=== PATIENT | female | born 1945 | race Hispanic/Latino ===

== ENCOUNTER 2018-06-03 07:18 | Day surgery (SDC) | payer MEDICARE ==
[2018-05-27 10:25] VITALS: BMI 25.4
--- NOTE | 2018-06-03 01:02 | HP ---
HISTORY OF PRESENT ILLNESS: Ms. Browne is referred to us by Dr. Curtis's office for evaluation of emerita th neck and low back complaints. Additionally, the patient brings up mild head and neck tremor that developed about a year and a half ago. She does have positive family history with both mom and broth er having Parkinson's disease. She also has concerns about this. Additionally, she reports numbness over her face, which I do not believe has any relation to her . Her low back complaint is that of axial low back pain that radiates in a searing L3 fashion to the right lower extremity. She mis es any left lower extremity pain. She does have bilateral lower extremity tingling for too barrington g. All this relates to an MRI scan on disk of her lumbars, which reveals scattered degenerative dise ase including severe L3-L4 stenosis with a borderline grade 1 to grade 2 spondylolisthesis, which is very likely the source of her back and leg symptoms. She has treated this conservatively for some ti me now and hopes to move forward with surgery if possible. PAST MEDICAL HISTORY: Positive for hyperlipidemia and hypothyroidism. PAST SURGICAL HISTORY: Herniorrhaphy. CURRENT MEDICATIONS: Levothyroxine, zolpidem, simvastatin. ALLERGIES: No known drug allergies. PHYSICAL EXAMINATION: NEUROLOGIC: The patient is alert and oriented x3. Gait is antalgic. Lower e xtremity motor exam is normal. ASSESSMENT: Dr. Shannon met with the patient, reviewed imaging, and ultimately advocated for lumbar de compression and fusion at L3-L4. He explained to the patient the risks, benefits, and alternatives t o the procedure. The patient expressed understanding and would like to move forward with surgery as discussed. I do believe the patient is mentally competent and capable of making medical decisions fo r herself and we will move forward with surgery as planned. Ankit Armstrong PA-C dictating for Dr. Shannon.
[2018-06-03] MEDS ORDERED: Bupivacaine HCl 0.5%/Epinephrine 1:200,000/PF 30 ml Vial ONE ×2 (07:53)
[2018-06-03] MEDS ORDERED: Thrombin 5000 UNITS/5 ML VIAL ONE (07:53)
[2018-06-03] MEDS ORDERED: CEFAZOLIN/Water 2 GM/20 ML SYRINGE ONE ×2 (08:01→15:24)
[2018-06-03] MEDS ORDERED: Fentanyl 100 MCG/2 ML VIAL ONE ×5 (08:24→14:06)
[2018-06-03] MEDS ORDERED: PROVENTIL INHALER 6.7 G (200 INHALATIONS) ONE (09:48)
[2018-06-03] MEDS ORDERED: PHENYLEPHRINE-NS 100 MCG/ML 10 ML SYRINGE ONE (09:48)
[2018-06-03] MEDS ORDERED: Dexamethasone 20 MG/5 ML VIAL ONE (09:48)
[2018-06-03] MEDS ORDERED: Lidocaine 1% PF 5 ML VIAL ONE (09:48)
[2018-06-03] MEDS ORDERED: PROPOFOL 200 MG/20 ML VIAL ONE (09:48)
[2018-06-03] MEDS ORDERED: Ondansetron HCl/PF 4 MG/2 ML Vial ONE ×2 (09:48→17:50)
[2018-06-03] MEDS ORDERED: Glycopyrrolate 0.2 MG/ML 5 ML SYRINGE ONE (09:48)
[2018-06-03] MEDS ORDERED: Midazolam HCl 2 mg/2 ml Vial ONE (12:44)
[2018-06-03] MEDS ORDERED: HYDROmorphone 2 MG/ML VIAL ONE (13:09)
[2018-06-03] MEDS ORDERED: Promethazine HCl 25 MG/ML VIAL ONE (15:45)
--- NOTE | 2018-06-06 12:37 | OP ---
DATE OF SURGERY: 06/03/2018 SURGEON: Paul Shannon MD SETUP TECHNICIAN: Ankit Armstrong PA-C INDICATION: Pain. DIAGNOSES: Back pain, lumbar radiculopathy, degenerative disk disease. PROCEDURES: L3-L4 decompression and fusion. ANESTHESIA: General. TECHNIQUE: The patient was brought into the operating room and placed under general anesthesia. She was flipped from a supine to a prone position on the operating room table. A linear incision was pl anned over the L3-L4 segment. After prepping and draping and after an appropriate operative pause, t he incision was created. The soft tissues were swept away from midline. Self-retaining retractors w ere placed in the wound for optimal exposure. After confirming the appropriate level with C-arm fluo roscopy, Adson rongeurs as well as a high-speed cutting drill bit, and 2, 3 and 4-mm Kerrisons were u sed to perform the decompression and facetectomies at L3-L4. Pedicle screws were then placed within the pedicles at L3-L4 with the aid of C-arm fluoroscopy. An intraoperative 3D CT scan was then perfo rmed to confirm appropriate placement of hardware. The wound was irrigated. Hemostasis was maintain ed throughout. The wound was then closed in anatomic layers and a pressure dressing was applied. Th ere were no known procedural complications.
== END 2018-06-03 18:40 | disposition home or self-care (01) ==
LOC: SDC 07:18
PROVIDERS: ATTEND Neurological Surgery
PROC: 0SG00AJ Fusion of Lumbar Vertebral Joint with Interbody Fusion Device, Posterior Approach, Anterior Column, Open Approach (ICD-10-PCS; principal; 2018-06-03)
DX: M51.16 Intervertebral disc disorders with radiculopathy, lumbar region (principal); M43.16 Spondylolisthesis, lumbar region; M48.061 Spinal stenosis, lumbar region without neurogenic claudication; E78.5 Hyperlipidemia, unspecified; E03.9 Hypothyroidism, unspecified; Z79.899 Other long term (current) drug therapy; Z88.5 Allergy status to narcotic agent
CPT/HCPCS: 22612; 22840; 76001; 96374 ×2; C1713 ×2; J0131; J0670; J1100; J1170; J2001; J2250; J2405; J2550; J2704; J3010

== ENCOUNTER 2018-07-19 09:53 | Outpatient (CLI) | payer MEDICARE ==
--- NOTE | 2018-07-19 11:26 | RAD ---
LUMBAR SPINE 2 VIEWS: HISTORY: A 73-year-old female with a history of M48.061, followup surgery at L3-L4. COMPARISON: MRI lumbar spine 03/18/1028. FINDINGS: Laminectomy and pedicle screw placement changes noted at L3-L4 with some anterior listhesis of L3 on L4. Marked narrowing at L4-L5 and L5-S1 and L2-L3 and L1-L2. Dextroscoliosis of the lumbar vertebra l column. Heterogeneous bony demineralization. IMPRESSION: Dextroscoliosis with postoperative changes at L3 on L4 with stable anterolisthesis. Multilevel disk- osteophytosis and facet arthrosis. POS: MICHELLE
== END 2018-07-19 09:54 | disposition home or self-care (01) ==
LOC: TBSIIMAG 09:53
PROVIDERS: ATTEND Neurological Surgery
DX: M48.061 Spinal stenosis, lumbar region without neurogenic claudication (principal); M41.9 Scoliosis, unspecified; M43.16 Spondylolisthesis, lumbar region; M25.78 Osteophyte, vertebrae; M47.896 Other spondylosis, lumbar region
CPT/HCPCS: 72100

== ENCOUNTER 2019-02-28 09:28 | Emergency (ER) | payer MEDICARE | END 2019-02-28 12:37 | disposition home or self-care (01) | LOC: ERS 09:28 | DX: L25.9 Unspecified contact dermatitis, unspecified cause (principal); F17.210 Nicotine dependence, cigarettes, uncomplicated; E78.5 Hyperlipidemia, unspecified; E03.9 Hypothyroidism, unspecified | CPT/HCPCS: 99282 ==

== ENCOUNTER 2022-04-09 08:11 | Outpatient (CLI) | payer MEDICARE ==
[~2022-04-09 08:11] MED LIST: Iopamidol 370 76% 100 ML VIAL ONE
== END 2022-04-09 08:12 | disposition home or self-care (01) ==
LOC: CT 08:11
PROVIDERS: ATTEND Thoracic Surgery (Cardiothoracic Vascular Surgery)
DX: I70.213 Atherosclerosis of native arteries of extremities with intermittent claudication, bilateral legs (principal); I70.0 Atherosclerosis of aorta; I70.8 Atherosclerosis of other arteries; I77.1 Stricture of artery; R91.1 Solitary pulmonary nodule; K44.9 Diaphragmatic hernia without obstruction or gangrene; K57.30 Diverticulosis of large intestine without perforation or abscess without bleeding; M47.816 Spondylosis without myelopathy or radiculopathy, lumbar region; M41.9 Scoliosis, unspecified; Z98.890 Other specified postprocedural states
CPT/HCPCS: 75635; 82565; Q9967

== ENCOUNTER 2022-04-24 09:15 | Inpatient (IN) | payer MEDICARE ==
[2022-04-24 11:28] LABS: Hemoglobin 13.6 g/dL (12.0-15.5); Mean Corpuscular HGB CONC 33.6 g/dL (32.0-36.0); Mean Corpuscular Hemoglobin 31.7 pg (27.0-33.0); Mean Corpuscular Volume 94.4 fl (81.6-98.3); Mean Platelet Volume 8.6 fl (7.4-10.4); Platelet Count 282 10x3/uL (150-450); Red Blood Cell (RBC) Count 4.29 10x6/uL (3.90-5.03); White Blood Cell (WBC) Count 7.6 10x3/uL (3.5-10.5)
[2022-04-24 11:49] LABS: Anion Gap 10 mmol/L (10-20); BUN (Urea Nitrogen) 14 mg/dL (9.8-20.1); Calc. Creatinine Clearance 0 mL/min (70-130); Calcium 9.1 mg/dL (7.8-10.44); Carbon Dioxide 27 mmol/L (23-31); Chloride 105 mmol/L (98-107); Estimated GFR 91; Glucose 92 mg/dL (83-110); Potassium 4.2 mmol/L (3.5-5.1); Sodium 138 mmol/L (136-145)
[2022-04-28] MEDS ORDERED: Heparin 5,000 UNITS/ML VIAL ONE (11:55)
[2022-04-28] MEDS ORDERED: CEFAZOLIN 2 GM VIAL ONE (12:03)
[2022-04-28] MEDS ORDERED: Sodium Chloride 0.9% 100 ML ONE (12:03)
[2022-04-28] MEDS ORDERED: fentaNYL Citrate/PF 100 MCG/2 ML SYRINGE ONE (12:09)
[2022-04-28] MEDS ORDERED: PROPOFOL 200 MG/20 ML VIAL ONE (12:18)
[2022-04-28] MEDS ORDERED: Lidocaine 1% PF 5 ML VIAL ONE (12:18)
[2022-04-28] MEDS ORDERED: ePHEDrine 50 MG/ML VIAL ONE (12:18)
[2022-04-28] MEDS ORDERED: Glycopyrrolate 0.2 MG/ML 5 ML SYRINGE ONE (12:18)
[2022-04-28] MEDS ORDERED: Neostigmine Methylsulfate 3 MG/3 ML SYRINGE ONE (12:18)
[2022-04-28] MEDS ORDERED: Rocuronium Bromide 10 MG/ML (10ML VIAL) ONE (12:18)
[2022-04-28] MEDS ORDERED: Ondansetron PF 4 MG/2 ML Vial ONE (12:18)
[2022-04-28] MEDS ORDERED: Bupivacaine PF 0.5% 30 ML VIAL ONE (13:11)
[2022-04-28] MEDS ORDERED: Protamine Sulfate 50 MG/5 ML VIAL ONE (13:22)
[2022-04-28] MEDS ORDERED: Ketorolac Tromethamine 30 MG/ML VIAL IVP PRN (14:14)
[2022-04-28] MEDS ORDERED: Ondansetron PF 4 MG/2 ML Vial IVP PRN (14:14)
[2022-04-28] MEDS ORDERED: traMADol HCl 50 MG TAB PO PRN ×2 (14:14)
[2022-04-28] MEDS ORDERED: Lactated Ringer's 1,000 ML IV SCH (14:15)
[2022-04-28] MEDS ORDERED: Propofol 500 MG/50 ML VIAL ONE (14:18)
[2022-04-28] MEDS ORDERED: Fentanyl 100 MCG/2 ML VIAL ONE (15:06)
[2022-04-28 18:34] VITALS: BMI 23.4
[2022-04-28] MEDS: CEFAZOLIN 2 GM in Sodium Chloride 0.9% 100 ML IVPB SCH (20:17)
[2022-04-28] MEDS ORDERED: Atorvastatin Calcium 10 MG TAB PO SCH (21:00)
[2022-04-28] MEDS ORDERED: Zolpidem Tartrate 5 MG TAB PO SCH (21:00)
[2022-04-29] MEDS: Acetaminophen 325 MG TAB PO PRN ×2 (01:02→09:16)
[2022-04-29] MEDS: CEFAZOLIN 2 GM in Sodium Chloride 0.9% 100 ML IVPB SCH ×2 (04:57→11:00)
[2022-04-29] MEDS ORDERED: Levothyroxine Sodium 112 MCG TAB PO SCH (06:00)
[2022-04-29] MEDS ORDERED: Aspirin Chewable 81 MG TAB PO SCH (09:00)
[2022-04-29] MEDS ORDERED: Polyethylene Glycol 3350 17 GM Packet PO SCH (09:00)
[2022-04-29] MEDS ORDERED: Propranolol 10 MG TAB PO SCH (09:00)
[2022-04-29 12:39] VITALS: BP 107/59; TEMP 97.9
== END 2022-04-29 14:12 | disposition home or self-care (01) | DRG 254 ==
LOC: SURG A 04-28 10:43 → SJJU 04-28 16:12
PROVIDERS: ADMIT Thoracic Surgery (Cardiothoracic Vascular Surgery); ATTEND Thoracic Surgery (Cardiothoracic Vascular Surgery)
PROC: 04CK0ZZ Extirpation of Matter from Right Femoral Artery, Open Approach (ICD-10-PCS; principal; 2022-04-28)
PROC: 04UK0JZ Supplement Right Femoral Artery with Synthetic Substitute, Open Approach (ICD-10-PCS; 2022-04-28)
DX: I70.213 Atherosclerosis of native arteries of extremities with intermittent claudication, bilateral legs (principal); Z20.822 Contact with and (suspected) exposure to COVID-19; M54.16 Radiculopathy, lumbar region; F17.210 Nicotine dependence, cigarettes, uncomplicated; G62.9 Polyneuropathy, unspecified; Z79.899 Other long term (current) drug therapy; Z90.49 Acquired absence of other specified parts of digestive tract; Z98.890 Other specified postprocedural states; Z98.1 Arthrodesis status; Z82.49 Family history of ischemic heart disease and other diseases of the circulatory system; Z90.710 Acquired absence of both cervix and uterus
CPT/HCPCS: 80048; 85027; 86850; 86900; 86901; 87811; C1768; J0690; J1644; J1885; J2405; J2704; J2720; J3010; J3490; S0020

== ENCOUNTER 2022-04-24 09:46 | Outpatient (CLI) | payer MEDICARE | END 2022-04-24 09:47 | disposition home or self-care (01) | LOC: LABBT 09:46 | PROVIDERS: ATTEND Thoracic Surgery (Cardiothoracic Vascular Surgery) | DX: Z01.818 Encounter for other preprocedural examination (principal); I73.9 Peripheral vascular disease, unspecified; Z20.822 Contact with and (suspected) exposure to COVID-19 | CPT/HCPCS: 80048; 85027; 86850; 86900; 86901; 87811; 93005; 93010 ==

== ENCOUNTER 2023-12-09 09:39 | Outpatient (CLI) | payer MEDICARE ==
[2023-12-09] MEDS ORDERED: Iopamidol 370 76% 100 ML VIAL ONE (11:52)
== END 2023-12-09 09:40 | disposition home or self-care (01) ==
LOC: CT 09:39
PROVIDERS: ATTEND Student in an Organized Health Care Education/Training Program
DX: I73.9 Peripheral vascular disease, unspecified (principal); I70.202 Unspecified atherosclerosis of native arteries of extremities, left leg; I70.8 Atherosclerosis of other arteries; I70.0 Atherosclerosis of aorta; Z98.890 Other specified postprocedural states
CPT/HCPCS: 71271; 75635; 82565; Q9967